=== PATIENT | male | born 1985 | race Two or more races ===

== ENCOUNTER 2020-10-16 09:26 | Inpatient (IN) | payer MEDICAID, OTHER ==
[~2020-10-16] VITALS: Ht 167.6 cm; Wt 89.7 kg
[2020-10-16 10:05] LABS: Red Blood Cells 4.21 10^6/uL (4.5-5.90)
[2020-10-16 10:07] LABS: Hematocrit 38.5 % (41.0-53.0); Hemoglobin 13.8 g/dL (13.5-17.5); Mean Corpuscular Hemoglobin 32.9 pg (28.0-32.0); Mean Corpuscular Hgb Conc. 35.9 g/dL (32.0-36.0); Mean Corpuscular Volume 91.5 fL (80.0-100.0); Red Cell Distribution Width 16.8 % (11.8-14.3)
[2020-10-16 10:15] LABS: White Blood Cell 36.3 10^3/uL (4.4-10.8)
[2020-10-16] MEDS ORDERED: THIAMINE 100mg/ml INJ (200mg/2ml VIAL) IV ONE (10:15)
[2020-10-16] MEDS ORDERED: SODIUM CHLORIDE 0.9% 1,000 ML IV ONE ×2 (10:15)
[2020-10-16 10:17] LABS: Basophils % (manual) 0 (0.0-2.0); Blast Cells 0; Eosinophils % (manual) 0 (0-7); Metamyelocytes % 0; Myelocytes % 0; Promyelocytes % 0; Reactive Lymphocytes 0
[2020-10-16 10:18] LABS: Albumin 1.8 g/dL (3.4-5.0); Calcium 7.3 mg/dL (8.5-10.1)
[2020-10-16 10:21] LABS: BUN/Creatinine Ratio 27.4; Bilirubin, Total 5.1 mg/dL (0.2-1.0); Total Protein 6.6 g/dL (6.4-8.2)
[2020-10-16 10:24] LABS: Potassium 2.9 mmol/L (3.5-5.1)
[2020-10-16] MEDS ORDERED: PANTOPRAZOLE 40 MG/10 ML VIAL INJ IV ONE (10:30)
[2020-10-16] MEDS ORDERED: cefTRIAXone 1GM/50ML D5W 50 ML IV ONE (10:30)
[2020-10-16] MEDS ORDERED: metroNIDAZOLE 500MG/100ML 100 ML IV ONE (10:30)
[2020-10-16] MEDS ORDERED: PROCHLORPERAZINE EDISYLATE 5 MG/ML 2ML VIAL IV ONE (11:00)
[2020-10-16 11:56] LABS: Lactic Acid w/Reflex 2.6 mmol/L (0.4-2.0)
[2020-10-16 12:01] LABS: Band Neutrophils % (manual) 19; Lymphocytes % (manual) 2 (10.0-50.0); Monocytes % (manual) 5 (0-12)
[2020-10-16] MEDS ORDERED: ALBUTEROL SULF 2.5 MG/0.5ML(0.5%) NEB SOLN NEB PRN (13:00)
[2020-10-16] MEDS ORDERED: SODIUM CHLORIDE 0.9% 1,000 ML IV SCH (13:00)
[2020-10-16] MEDS ORDERED: ONDANSETRON HCL 4 MG/2 ML VIAL IV PRN (13:00)
[2020-10-16] MEDS ORDERED: MORPHINE SULFATE INJECTION 2 MG/ML SYRG IV PRN (13:00)
[2020-10-16] MEDS ORDERED: POTASSIUM CHLORIDE 40 MEQ, LIDOCAINE 1% (LOCAL ANESTH.) 4 ML in SODIUM CHL 0.9% 250 ML IV ONE (13:00)
[2020-10-16] MEDS ORDERED: IPRATROPIUM BROM 0.5 MG/2.5ML INH SOL NEB PRN (13:00)
[2020-10-16] MEDS ORDERED: NITROGLYCERIN 0.4 MG SL TAB SL PRN (13:00)
[2020-10-16 13:32] VITALS: BP 119/70
[2020-10-16 13:39] LABS: Urine Bacteria NONE SEEN /hpf (None Seen); Urine Blood 1+ /uL (Negative); Urine Mucus FEW (None Seen); Urine Specific Gravity 1.031 (1.001-1.035); Urine WBC 3 /hpf (0 - 3)
[2020-10-16] MEDS ORDERED: REMDESIVIR PER PHARMACY 0 ML IV SCH (14:30)
[2020-10-16 14:31] LABS: INR 1.24 (0.9-1.15)
[2020-10-16] MEDS ORDERED: IOHEXOL 350 MG/ML 100ML IJ ONE (14:42)
[2020-10-16] MEDS ORDERED: OCTREOTIDE ACETATE 100 MCG in SODIUM CHL 0.9% 50 ML IV ONE (15:00)
[2020-10-16] MEDS: PIPERACILLIN-TAZOB 3.375GM 100 ML IV SCH ×2 (15:36→21:23)
[2020-10-16] MEDS: ACETAMINOPHEN 500 MG TAB PO PRN (15:49)
[2020-10-16 16:00] VITALS: BP_SYST 108; BP_SYST 118; BP_DIAS 62; BP_DIAS 67
[2020-10-16] MEDS: SODIUM CHLORIDE 0.9% 1,000 ML IV SCH (16:23)
[2020-10-16] MEDS: OCTREOTIDE ACETATE 500 MCG in SODIUM CHL 0.9% 99 ML IV SCH ×2 (17:22→23:17)
[2020-10-16] MEDS: SUCRALFATE 1 GM/10 ML ORAL SUSP PO SCH ×2 (17:22→21:23)
[2020-10-16] MEDS: DexAMETHasone SOD PHOS 10MG/1ML VIAL INJ IV SCH (17:23)
[2020-10-16] MEDS: ZINC SULFATE 220mg CAP or TAB PO SCH (17:24)
[2020-10-16] MEDS: ASCORBIC ACID 1,000 MG TAB PO SCH (17:24)
[2020-10-16] MEDS: CHOLECALCIFEROL (VITD3) 2,000 UNIT CAP/TAB PO SCH (17:25)
[2020-10-16] MEDS ORDERED: LIDOCAINE 1% (LOCAL ANESTH.) PF 5ml SDV ID ONE (18:00)
[2020-10-16] MEDS: BUDESONIDE (INHALATION) 180 MCG IH IN SCH (19:07)
[2020-10-16] MEDS: ALBUTEROL SULF HFA 90MCG INH 200DOSE IN PRN (19:07)
[2020-10-16 20:00] VITALS: BP 120/77
[2020-10-16 21:00] VITALS: BP 113/71
[2020-10-16] MEDS: PANTOPRAZOLE 40 MG/10 ML VIAL INJ IV SCH (21:22)
[2020-10-16] MEDS: SODIUM CHLOR 0.9% PF (SALINE LOCK) 10ML VIAL/SYR IV SCH (21:23)
[2020-10-16 22:00] VITALS: BP 106/64
[2020-10-16 23:00] VITALS: BP 115/66
[2020-10-17] VITALS (14 sets, daily range): BP systolic 98–124; BP diastolic 48–89
[2020-10-17] MEDS: MORPHINE SULFATE INJECTION 2 MG/ML SYRG IV PRN (02:00)
[2020-10-17] MEDS: PIPERACILLIN-TAZOB 3.375GM 100 ML IV SCH ×3 (05:01→22:04)
[2020-10-17] MEDS: SODIUM CHLORIDE 0.9% 1,000 ML IV SCH ×2 (05:02→17:10)
[2020-10-17] MEDS: SUCRALFATE 1 GM/10 ML ORAL SUSP PO SCH ×4 (06:21→22:05)
[2020-10-17 06:25] LABS: Hematocrit 36.2 % (41.0-53.0); Hemoglobin 12.9 g/dL (13.5-17.5); Mean Corpuscular Hemoglobin 32.6 pg (28.0-32.0); Mean Corpuscular Hgb Conc. 35.5 g/dL (32.0-36.0); Mean Corpuscular Volume 91.6 fL (80.0-100.0); Red Blood Cells 3.95 10^6/uL (4.5-5.90); Red Cell Distribution Width 17.1 % (11.8-14.3); White Blood Cell 27.1 10^3/uL (4.4-10.8)
[2020-10-17] MEDS: ALBUTEROL SULF HFA 90MCG INH 200DOSE IN PRN (06:35)
[2020-10-17] MEDS: BUDESONIDE (INHALATION) 180 MCG IH IN SCH ×2 (06:35→22:29)
[2020-10-17 06:41] LABS: Basophils % (manual) 0 (0.0-2.0); Eosinophils % (manual) 0 (0-7); Metamyelocytes % 0; Myelocytes % 0; Promyelocytes % 0
[2020-10-17 06:42] LABS: Blast Cells 0; Reactive Lymphocytes 0
[2020-10-17 06:46] LABS: Albumin 1.6 g/dL (3.4-5.0); Calcium 6.8 mg/dL (8.5-10.1); Potassium 3.5 mmol/L (3.5-5.1)
[2020-10-17 06:50] LABS: BUN/Creatinine Ratio 23.9; Bilirubin, Total 6.4 mg/dL (0.2-1.0)
[2020-10-17] MEDS ORDERED: IVERMECTIN 3 MG TAB PO ONE (07:00)
[2020-10-17 07:49] LABS: Band Neutrophils % (manual) 14; Lymphocytes % (manual) 2 (10.0-50.0); Monocytes % (manual) 1 (0-12)
[2020-10-17] MEDS: DexAMETHasone SOD PHOS 10MG/1ML VIAL INJ IV SCH (08:43)
[2020-10-17] MEDS: PANTOPRAZOLE 40 MG/10 ML VIAL INJ IV SCH ×2 (08:43→22:04)
[2020-10-17] MEDS: CHOLECALCIFEROL (VITD3) 2,000 UNIT CAP/TAB PO SCH (08:44)
[2020-10-17] MEDS: ZINC SULFATE 220mg CAP or TAB PO SCH (08:44)
[2020-10-17] MEDS: SODIUM CHLOR 0.9% PF (SALINE LOCK) 10ML VIAL/SYR IV SCH ×2 (08:44→22:04)
[2020-10-17] MEDS: ASCORBIC ACID 1,000 MG TAB PO SCH (08:44)
[2020-10-17] MEDS ORDERED: LIDOCAINE VISCOUS 2% 15ML UD ONE (08:45)
[2020-10-17] MEDS ORDERED: diphenhdrAMINE HCL 50 MG/1 ML VL ONE (08:46)
[2020-10-17] MEDS ORDERED: FAMOTIDINE 20 MG TAB PO SCH (10:00)
[2020-10-17] MEDS: OCTREOTIDE ACETATE 500 MCG in SODIUM CHL 0.9% 99 ML IV SCH ×2 (11:00→12:42)
[2020-10-17] MEDS: LORazepam 2MG/ML-1ML VIAL IV PRN ×2 (13:14→19:35)
[2020-10-17] MEDS: FOLIC ACID 1 MG, MULTIPLE VITAMIN 10 ML, MAGNESIUM SULF SDV 50% 8 MEQ, THIAMINE INJ 100... INJ SCH ×5 (15:26)
[2020-10-17] MEDS: fentaNYL CITRATE 100 MCG/2 ML VL ONE ×2 (16:22→16:25)
[2020-10-17] MEDS: MIDAZOLAM HCL 5 MG/ML-1ML VIAL ONE ×2 (16:22→16:25)
[2020-10-18 01:00] VITALS: BP 108/87
[2020-10-18] MEDS: ACETAMINOPHEN 500 MG TAB PO PRN ×2 (01:32→23:30)
[2020-10-18] MEDS: OCTREOTIDE ACETATE 500 MCG in SODIUM CHL 0.9% 99 ML IV SCH ×2 (01:41→15:50)
[2020-10-18] MEDS: LORazepam 2MG/ML-1ML VIAL IV PRN ×3 (01:47→23:00)
[2020-10-18 04:00] VITALS: BP 124/77
[2020-10-18] MEDS: PIPERACILLIN-TAZOB 3.375GM 100 ML IV SCH ×3 (06:00→22:03)
[2020-10-18 06:20] LABS: Basophils # (auto) 0 10 ^3/uL (0-0.2); Basophils % (auto) 0.1 % (0.0-2.0); Eosinophils # (auto) 0 10 ^3/uL (0-0.8); Hematocrit 36.2 % (41.0-53.0); Hemoglobin 12.8 g/dL (13.5-17.5); Lymphocytes # (auto) 0.4 10 ^3/uL (0.4-5.4); Lymphocytes % (auto) 1.8 % (10.0-50.0); Mean Corpuscular Hemoglobin 32.8 pg (28.0-32.0); Mean Corpuscular Hgb Conc. 35.3 g/dL (32.0-36.0); Monocytes % (auto) 4.7 % (0.0-12.0); Neutrophils # (auto) 19.3 10 ^3/uL (1.6-8.6); Neutrophils % (auto) 93.4 % (37.0-80.0); Red Blood Cells 3.89 10^6/uL (4.5-5.90); Red Cell Distribution Width 17.6 % (11.8-14.3); White Blood Cell 20.6 10^3/uL (4.4-10.8)
[2020-10-18] MEDS: ALBUTEROL SULF HFA 90MCG INH 200DOSE IN PRN ×2 (06:20→22:47)
[2020-10-18] MEDS: BUDESONIDE (INHALATION) 180 MCG IH IN SCH ×2 (06:21→22:47)
[2020-10-18] MEDS: SODIUM CHLORIDE 0.9% 1,000 ML IV SCH ×2 (06:30→19:50)
[2020-10-18 06:39] LABS: Potassium 3.7 mmol/L (3.5-5.1)
[2020-10-18 06:48] LABS: Albumin 1.5 g/dL (3.4-5.0); BUN/Creatinine Ratio 27.4; Calcium 6.9 mg/dL (8.5-10.1); Total Protein 5.6 g/dL (6.4-8.2)
[2020-10-18] MEDS: SUCRALFATE 1 GM/10 ML ORAL SUSP PO SCH ×4 (07:00→22:03)
[2020-10-18] MEDS: PANTOPRAZOLE 40 MG/10 ML VIAL INJ IV SCH ×2 (08:46→22:03)
[2020-10-18] MEDS: CHOLECALCIFEROL (VITD3) 2,000 UNIT CAP/TAB PO SCH (08:47)
[2020-10-18] MEDS: ZINC SULFATE 220mg CAP or TAB PO SCH (08:47)
[2020-10-18] MEDS: SODIUM CHLOR 0.9% PF (SALINE LOCK) 10ML VIAL/SYR IV SCH ×2 (08:47→22:03)
[2020-10-18] MEDS: chlordiazePOXIDE HCL 25 MG CAP PO PRN ×2 (11:26→21:16)
[2020-10-18 12:00] VITALS: BP 119/77
[2020-10-18] MEDS: HYDROcodone-ACET 5/325MG TAB PO PRN (12:31)
[2020-10-18] MEDS: MORPHINE SULFATE INJECTION 2 MG/ML SYRG IV PRN (13:27)
[2020-10-18] MEDS: FOLIC ACID 1 MG, MULTIPLE VITAMIN 10 ML, MAGNESIUM SULF SDV 50% 8 MEQ, THIAMINE INJ 100... INJ SCH ×5 (15:35)
[2020-10-18 16:34] VITALS: BP 116/80
[2020-10-18 19:00] VITALS: BP 107/68
[2020-10-19] VITALS (19 sets, daily range): BP systolic 92–129; BP diastolic 52–83
[2020-10-19] MEDS: OCTREOTIDE ACETATE 500 MCG in SODIUM CHL 0.9% 99 ML IV SCH ×3 (02:55→23:28)
[2020-10-19] MEDS: MORPHINE SULFATE INJECTION 2 MG/ML SYRG IV PRN ×2 (02:56→21:05)
[2020-10-19] MEDS: HYDROcodone-ACET 5/325MG TAB PO PRN ×3 (04:00→21:50)
[2020-10-19] MEDS: ACETAMINOPHEN 500 MG TAB PO PRN (05:02)
[2020-10-19] MEDS: PIPERACILLIN-TAZOB 3.375GM 100 ML IV SCH ×3 (06:00→23:28)
[2020-10-19 06:17] LABS: Hematocrit 38.8 % (41.0-53.0); Hemoglobin 13.4 g/dL (13.5-17.5); Mean Corpuscular Hemoglobin 32.2 pg (28.0-32.0); Mean Corpuscular Hgb Conc. 34.6 g/dL (32.0-36.0); Red Blood Cells 4.17 10^6/uL (4.5-5.90); Red Cell Distribution Width 17.2 % (11.8-14.3)
[2020-10-19] MEDS: BUDESONIDE (INHALATION) 180 MCG IH IN SCH ×2 (06:22→22:02)
[2020-10-19] MEDS: ALBUTEROL SULF HFA 90MCG INH 200DOSE IN PRN ×2 (06:24→22:02)
[2020-10-19 06:40] LABS: Potassium 3.5 mmol/L (3.5-5.1)
[2020-10-19 06:48] LABS: Basophils % (manual) 0 (0.0-2.0); Blast Cells 0; Metamyelocytes % 0; Myelocytes % 0; Promyelocytes % 0; Reactive Lymphocytes 0
[2020-10-19 06:51] LABS: BUN/Creatinine Ratio 17.6; Calcium 6.7 mg/dL (8.5-10.1)
[2020-10-19] MEDS: SUCRALFATE 1 GM/10 ML ORAL SUSP PO SCH ×4 (07:00→21:03)
[2020-10-19 08:06] LABS: Band Neutrophils % (manual) 15; Eosinophils % (manual) 1 (0-7); Lymphocytes % (manual) 6 (10.0-50.0); Monocytes % (manual) 3 (0-12)
[2020-10-19] MEDS ORDERED: LIDOCAINE VISCOUS 2% 15ML UD ONE (09:31)
[2020-10-19] MEDS: SODIUM CHLORIDE 0.9% 1,000 ML IV SCH ×3 (09:31→15:01)
[2020-10-19] MEDS: CHOLECALCIFEROL (VITD3) 2,000 UNIT CAP/TAB PO SCH (10:00)
[2020-10-19] MEDS: SODIUM CHLOR 0.9% PF (SALINE LOCK) 10ML VIAL/SYR IV SCH ×2 (10:00→21:02)
[2020-10-19] MEDS: PANTOPRAZOLE 40 MG/10 ML VIAL INJ IV SCH ×2 (10:00→21:02)
[2020-10-19] MEDS: ZINC SULFATE 220mg CAP or TAB PO SCH (10:00)
[2020-10-19] MEDS ORDERED: PHENYLEPHRINE HCL 10 MG/ML VL IV ONE (10:35)
[2020-10-19] MEDS ORDERED: MEPERIDINE HCL (25 MG/ML) 1ML VIAL ONE (10:47)
[2020-10-19] MEDS ORDERED: fentaNYL CITRATE 100 MCG/2 ML VL ONE (10:47)
[2020-10-19] MEDS ORDERED: MIDAZOLAM HCL 2MG/2ML 2ml VIAL (1mg/ml) ONE (10:47)
[2020-10-19] MEDS ORDERED: PROPOFOL 10 MG/ML 20 ML IV ONE (10:59)
[2020-10-19] MEDS ORDERED: DexAMETHasone SOD PHOS 10MG/1ML VIAL INJ ONE (10:59)
[2020-10-19 11:03] LABS: Hepatitis B Surface Antibody Negative
[2020-10-19] MEDS ORDERED: ONDANSETRON HCL 4 MG/2 ML VIAL IV PRN (11:15)
[2020-10-19] MEDS ORDERED: LABETALOL HCL 5 MG/ML 4ML SYRINGE IV PRN (11:15)
[2020-10-19] MEDS ORDERED: HYDROmorphone HCL 2 MG/ML VL IV PRN (11:15)
[2020-10-19] MEDS ORDERED: MIDAZOLAM HCL 2MG/2ML 2ml VIAL (1mg/ml) IV PRN (11:15)
[2020-10-19] MEDS ORDERED: ePHEDrine SULFATE 50 MG/ML AMP IV PRN (11:15)
[2020-10-19] MEDS ORDERED: MORPHINE SULFATE 4 MG/ML SYR/VIAL IV PRN (11:15)
[2020-10-19 11:40] LABS: Hepatitis A Total Antibody Positive
[2020-10-19] MEDS: FOLIC ACID 1 MG, MULTIPLE VITAMIN 10 ML, MAGNESIUM SULF SDV 50% 8 MEQ, THIAMINE INJ 100... INJ SCH ×5 (12:49)
[2020-10-19] MEDS ORDERED: DexAMETHasone SOD PHOS 10MG/1ML VIAL INJ IV ONE (14:00)
[2020-10-19] MEDS: LORazepam 2MG/ML-1ML VIAL IV PRN (14:56)
[2020-10-19] MEDS: chlordiazePOXIDE HCL 25 MG CAP PO PRN ×2 (14:58→21:50)
[2020-10-19 15:25] LABS: Hepatitis B Core Total AB Negative; Hepatitis B Surface Antigen Negative (Negative)
[2020-10-20] VITALS (17 sets, daily range): BP systolic 97–128; BP diastolic 60–88
[2020-10-20] MEDS: MORPHINE SULFATE INJECTION 2 MG/ML SYRG IV PRN (01:19)
[2020-10-20 05:38] LABS: Basophils # (auto) 0.1 10 ^3/uL (0-0.2); Basophils % (auto) 0.2 % (0.0-2.0); Eosinophils # (auto) 0 10 ^3/uL (0-0.8); Hemoglobin 12.9 g/dL (13.5-17.5); Lymphocytes # (auto) 0.5 10 ^3/uL (0.4-5.4); Lymphocytes % (auto) 2.1 % (10.0-50.0); Mean Corpuscular Hemoglobin 32.7 pg (28.0-32.0); Mean Corpuscular Volume 93.4 fL (80.0-100.0); Monocytes # (auto) 0.9 10 ^3/uL (0-1.3); Monocytes % (auto) 3.6 % (0.0-12.0); Neutrophils # (auto) 24.1 10 ^3/uL (1.6-8.6); Neutrophils % (auto) 94.1 % (37.0-80.0); Nucleated Red Blood Cells % 0.1 %; Red Blood Cells 3.96 10^6/uL (4.5-5.90); Red Cell Distribution Width 17.8 % (11.8-14.3); White Blood Cell 25.7 10^3/uL (4.4-10.8)
[2020-10-20 05:59] LABS: Potassium 4.3 mmol/L (3.5-5.1)
[2020-10-20 06:07] LABS: Albumin 1.5 g/dL (3.4-5.0); BUN/Creatinine Ratio 18.3; Bilirubin, Total 9.9 mg/dL (0.2-1.0); Total Protein 5.5 g/dL (6.4-8.2)
[2020-10-20] MEDS: ALBUTEROL SULF HFA 90MCG INH 200DOSE IN PRN ×2 (06:08→21:31)
[2020-10-20] MEDS: BUDESONIDE (INHALATION) 180 MCG IH IN SCH ×2 (06:08→21:31)
[2020-10-20] MEDS: SUCRALFATE 1 GM/10 ML ORAL SUSP PO SCH ×2 (06:48→09:17)
[2020-10-20] MEDS: PIPERACILLIN-TAZOB 3.375GM 100 ML IV SCH ×3 (06:48→21:28)
[2020-10-20] MEDS: ACETAMINOPHEN 500 MG TAB PO PRN (07:17)
[2020-10-20] MEDS: FOLIC ACID 1 MG in D5W 5% 50 ML INJ SCH (09:15)
[2020-10-20] MEDS: OCTREOTIDE ACETATE 500 MCG in SODIUM CHL 0.9% 99 ML IV SCH (09:15)
[2020-10-20] MEDS: DexAMETHasone SOD PHOS 10MG/1ML VIAL INJ IV SCH (09:16)
[2020-10-20] MEDS: PANTOPRAZOLE 40 MG/10 ML VIAL INJ IV SCH (09:16)
[2020-10-20] MEDS: THIAMINE 100mg/ml INJ (200mg/2ml VIAL) IV SCH (09:16)
[2020-10-20] MEDS: ZINC SULFATE 220mg CAP or TAB PO SCH (09:17)
[2020-10-20] MEDS: CHOLECALCIFEROL (VITD3) 2,000 UNIT CAP/TAB PO SCH (09:17)
[2020-10-20] MEDS: SODIUM CHLOR 0.9% PF (SALINE LOCK) 10ML VIAL/SYR IV SCH ×2 (09:17→21:28)
[2020-10-20] MEDS: chlordiazePOXIDE HCL 25 MG CAP PO PRN ×2 (09:23→21:28)
[2020-10-20] MEDS: LORazepam 2MG/ML-1ML VIAL IV PRN (16:45)
[2020-10-21] VITALS (7 sets, daily range): BP systolic 105–141; BP diastolic 57–83
[2020-10-21] MEDS: LORazepam 2MG/ML-1ML VIAL IV PRN (00:49)
[2020-10-21] MEDS: PIPERACILLIN-TAZOB 3.375GM 100 ML IV SCH ×3 (05:13→21:02)
[2020-10-21 06:16] LABS: Basophils # (auto) 0 10 ^3/uL (0-0.2); Basophils % (auto) 0.1 % (0.0-2.0); Eosinophils # (auto) 0 10 ^3/uL (0-0.8); Hematocrit 31.9 % (41.0-53.0); Hemoglobin 10.9 g/dL (13.5-17.5); Lymphocytes # (auto) 0.7 10 ^3/uL (0.4-5.4); Lymphocytes % (auto) 3.1 % (10.0-50.0); Mean Corpuscular Hemoglobin 32.6 pg (28.0-32.0); Mean Corpuscular Hgb Conc. 34.3 g/dL (32.0-36.0); Mean Corpuscular Volume 95.2 fL (80.0-100.0); Monocytes # (auto) 1.2 10 ^3/uL (0-1.3); Monocytes % (auto) 5.2 % (0.0-12.0); Neutrophils # (auto) 20.2 10 ^3/uL (1.6-8.6); Neutrophils % (auto) 91.6 % (37.0-80.0); Red Blood Cells 3.36 10^6/uL (4.5-5.90); Red Cell Distribution Width 18.1 % (11.8-14.3); White Blood Cell 22.1 10^3/uL (4.4-10.8)
[2020-10-21] MEDS: ALBUTEROL SULF HFA 90MCG INH 200DOSE IN PRN ×2 (08:21→23:52)
[2020-10-21] MEDS: BUDESONIDE (INHALATION) 180 MCG IH IN SCH ×2 (08:21→23:52)
[2020-10-21] MEDS: THIAMINE 100mg/ml INJ (200mg/2ml VIAL) IV SCH (09:46)
[2020-10-21] MEDS: SODIUM CHLOR 0.9% PF (SALINE LOCK) 10ML VIAL/SYR IV SCH ×2 (09:46→21:02)
[2020-10-21] MEDS: DexAMETHasone SOD PHOS 10MG/1ML VIAL INJ IV SCH (09:46)
[2020-10-21] MEDS: ZINC SULFATE 220mg CAP or TAB PO SCH (09:46)
[2020-10-21] MEDS: CHOLECALCIFEROL (VITD3) 2,000 UNIT CAP/TAB PO SCH (09:47)
[2020-10-21] MEDS: FOLIC ACID 1 MG in D5W 5% 50 ML INJ SCH (10:10)
[2020-10-21 10:16] LABS: Potassium 3.6 mmol/L (3.5-5.1)
[2020-10-21 10:24] LABS: Albumin 1.6 g/dL (3.4-5.0); BUN/Creatinine Ratio 16.9; Bilirubin, Total 8.3 mg/dL (0.2-1.0); Calcium 7.5 mg/dL (8.5-10.1); Total Protein 5.5 g/dL (6.4-8.2)
[2020-10-21] MEDS: HYDROcodone-ACET 5/325MG TAB PO PRN (12:15)
[2020-10-22] VITALS (8 sets, daily range): BP systolic 101–112; BP diastolic 53–76
[2020-10-22] MEDS: LORazepam 2MG/ML-1ML VIAL IV PRN (00:27)
[2020-10-22] MEDS: PIPERACILLIN-TAZOB 3.375GM 100 ML IV SCH ×4 (06:00→21:25)
[2020-10-22 06:26] LABS: Basophils # (auto) 0 10 ^3/uL (0-0.2); Basophils % (auto) 0.2 % (0.0-2.0); Eosinophils # (auto) 0 10 ^3/uL (0-0.8); Eosinophils % (auto) 0.2 % (0.0-7.0); Hemoglobin 10.8 g/dL (13.5-17.5); Lymphocytes # (auto) 0.8 10 ^3/uL (0.4-5.4); Lymphocytes % (auto) 3.8 % (10.0-50.0); Mean Corpuscular Hemoglobin 31.9 pg (28.0-32.0); Mean Corpuscular Hgb Conc. 33.8 g/dL (32.0-36.0); Mean Corpuscular Volume 94.5 fL (80.0-100.0); Monocytes # (auto) 1.3 10 ^3/uL (0-1.3); Monocytes % (auto) 6.1 % (0.0-12.0); Neutrophils # (auto) 19.6 10 ^3/uL (1.6-8.6); Neutrophils % (auto) 89.7 % (37.0-80.0); Red Blood Cells 3.39 10^6/uL (4.5-5.90); Red Cell Distribution Width 18.2 % (11.8-14.3); White Blood Cell 21.9 10^3/uL (4.4-10.8)
[2020-10-22 06:39] LABS: Potassium 3.5 mmol/L (3.5-5.1)
[2020-10-22 06:44] LABS: Albumin 1.3 g/dL (3.4-5.0); Magnesium 1.7 mg/dL (1.6-2.6)
[2020-10-22] MEDS: BUDESONIDE (INHALATION) 180 MCG IH IN SCH ×2 (07:10→19:38)
[2020-10-22] MEDS: ALBUTEROL SULF HFA 90MCG INH 200DOSE IN PRN ×2 (07:10→19:38)
[2020-10-22 07:12] LABS: Bilirubin, Total 6.7 mg/dL (0.2-1.0); Total Protein 5.2 g/dL (6.4-8.2)
[2020-10-22] MEDS: DexAMETHasone SOD PHOS 4 MG/1ML SDV INJ IV SCH (10:06)
[2020-10-22] MEDS: FOLIC ACID 1 MG in D5W 5% 50 ML INJ SCH (10:06)
[2020-10-22] MEDS: THIAMINE 100mg/ml INJ (200mg/2ml VIAL) IV SCH (10:06)
[2020-10-22] MEDS: SODIUM CHLOR 0.9% PF (SALINE LOCK) 10ML VIAL/SYR IV SCH ×2 (10:06→21:25)
[2020-10-22] MEDS: CHOLECALCIFEROL (VITD3) 2,000 UNIT CAP/TAB PO SCH (10:07)
[2020-10-22] MEDS: ZINC SULFATE 220mg CAP or TAB PO SCH (10:07)
[2020-10-22] MEDS ORDERED: MAGNESIUM SULFATE 1GM/100ML 100 ML IV ONE (12:30)
[2020-10-22] MEDS ORDERED: POTASSIUM CHL 20 Meq TABLET PO ONE (12:30)
[2020-10-23 05:00] VITALS: BP 94/42
[2020-10-23] MEDS: ACETAMINOPHEN 500 MG TAB PO PRN ×2 (05:07→23:08)
[2020-10-23] MEDS: PIPERACILLIN-TAZOB 3.375GM 100 ML IV SCH ×3 (05:49→21:41)
[2020-10-23 06:00] VITALS: BP 98/54
[2020-10-23 06:53] LABS: Hematocrit 33.9 % (41.0-53.0); Hemoglobin 11.6 g/dL (13.5-17.5); Mean Corpuscular Hemoglobin 32.4 pg (28.0-32.0); Mean Corpuscular Hgb Conc. 34.1 g/dL (32.0-36.0); Mean Corpuscular Volume 94.9 fL (80.0-100.0); Red Blood Cells 3.57 10^6/uL (4.5-5.90); Red Cell Distribution Width 18.2 % (11.8-14.3); White Blood Cell 26.6 10^3/uL (4.4-10.8)
[2020-10-23 07:01] LABS: Basophils % (manual) 0 (0.0-2.0); Blast Cells 0; Metamyelocytes % 0; Promyelocytes % 0; Reactive Lymphocytes 0
[2020-10-23 07:13] LABS: Potassium 3.8 mmol/L (3.5-5.1)
[2020-10-23 07:19] LABS: Albumin 1.6 g/dL (3.4-5.0); Bilirubin, Direct 7.8 mg/dL (0-0.2); Bilirubin, Total 9.2 mg/dL (0.2-1.0); Total Protein 5.4 g/dL (6.4-8.2)
[2020-10-23 07:50] LABS: Band Neutrophils % (manual) 7; Eosinophils % (manual) 1 (0-7); Lymphocytes % (manual) 4 (10.0-50.0); Monocytes % (manual) 6 (0-12); Myelocytes % 2
[2020-10-23] MEDS: ALBUTEROL SULF HFA 90MCG INH 200DOSE IN PRN ×2 (07:53→18:47)
[2020-10-23] MEDS: BUDESONIDE (INHALATION) 180 MCG IH IN SCH ×2 (07:53→18:47)
[2020-10-23 09:00] VITALS: BP 82/36
[2020-10-23] MEDS: DexAMETHasone SOD PHOS 4 MG/1ML SDV INJ IV SCH (09:41)
[2020-10-23] MEDS: CHOLECALCIFEROL (VITD3) 2,000 UNIT CAP/TAB PO SCH (09:41)
[2020-10-23] MEDS: ZINC SULFATE 220mg CAP or TAB PO SCH (09:42)
[2020-10-23] MEDS: chlordiazePOXIDE HCL 25 MG CAP PO PRN (09:42)
[2020-10-23] MEDS: SODIUM CHLOR 0.9% PF (SALINE LOCK) 10ML VIAL/SYR IV SCH ×2 (09:44→21:41)
[2020-10-23] MEDS: FOLIC ACID 1 MG in D5W 5% 50 ML INJ SCH (09:44)
[2020-10-23] MEDS ORDERED: SODIUM CHLORIDE 0.9% 500 ML IV ONE (09:45)
[2020-10-23] MEDS: SODIUM CHLORIDE 0.9% 1,000 ML IV SCH (10:49)
[2020-10-23] MEDS: THIAMINE 100mg/ml INJ (200mg/2ml VIAL) IV SCH (10:50)
[2020-10-23] MEDS ORDERED: VANCOMYCIN PER PHARMACY 0 MG IV SCH (11:15)
[2020-10-23] MEDS: HYDROcodone-ACET 5/325MG TAB PO PRN (11:24)
[2020-10-23 13:00] VITALS: BP 106/61
[2020-10-23] MEDS ORDERED: VANCOMYCIN 1GM/250ML 250 ML IV ONE (13:00)
[2020-10-23] MEDS ORDERED: PANTOPRAZOLE 40 MG TAB PO ONE (13:30)
[2020-10-23 13:51] LABS: Hepatitis C Antibody Negative (Negative)
[2020-10-23 17:16] VITALS: BP 93/59
[2020-10-23] MEDS: VANCOMYCIN 1GM/250ML 250 ML IV SCH (21:20)
[2020-10-23 22:00] VITALS: BP 116/71
[2020-10-24] MEDS: SODIUM CHLORIDE 0.9% 1,000 ML IV SCH
[2020-10-24 05:00] VITALS: BP 107/60
[2020-10-24] MEDS: VANCOMYCIN 1GM/250ML 250 ML IV SCH (06:20)
[2020-10-24] MEDS: PIPERACILLIN-TAZOB 3.375GM 100 ML IV SCH ×3 (06:30→22:38)
[2020-10-24 06:46] LABS: Hematocrit 32.1 % (41.0-53.0); Hemoglobin 11.1 g/dL (13.5-17.5); Mean Corpuscular Hemoglobin 33.6 pg (28.0-32.0); Mean Corpuscular Hgb Conc. 34.7 g/dL (32.0-36.0); Mean Corpuscular Volume 96.8 fL (80.0-100.0); Red Blood Cells 3.31 10^6/uL (4.5-5.90); Red Cell Distribution Width 18.4 % (11.8-14.3)
[2020-10-24 06:57] LABS: INR 1.6 (0.9-1.15)
[2020-10-24 07:00] LABS: White Blood Cell 34.9 10^3/uL (4.4-10.8)
[2020-10-24 07:01] LABS: Basophils % (manual) 0 (0.0-2.0); Blast Cells 0; Eosinophils % (manual) 0 (0-7); Myelocytes % 0; Promyelocytes % 0; Reactive Lymphocytes 0
[2020-10-24 07:04] LABS: Albumin 1.5 g/dL (3.4-5.0); Calcium 7.6 mg/dL (8.5-10.1); Magnesium 2.3 mg/dL (1.6-2.6); Potassium 4.4 mmol/L (3.5-5.1)
[2020-10-24 07:09] LABS: BUN/Creatinine Ratio 21.7; Bilirubin, Total 9.3 mg/dL (0.2-1.0); Total Protein 5.5 g/dL (6.4-8.2)
[2020-10-24] MEDS: ALBUTEROL SULF HFA 90MCG INH 200DOSE IN PRN ×2 (07:53→23:00)
[2020-10-24] MEDS: BUDESONIDE (INHALATION) 180 MCG IH IN SCH ×2 (07:54→23:00)
[2020-10-24 07:58] LABS: Band Neutrophils % (manual) 5; Lymphocytes % (manual) 5 (10.0-50.0); Metamyelocytes % 1; Monocytes % (manual) 4 (0-12)
[2020-10-24 09:00] VITALS: BP 100/58
[2020-10-24] MEDS: SODIUM CHLOR 0.9% PF (SALINE LOCK) 10ML VIAL/SYR IV SCH ×2 (09:41→22:38)
[2020-10-24] MEDS: ZINC SULFATE 220mg CAP or TAB PO SCH (09:41)
[2020-10-24] MEDS: HYDROcodone-ACET 5/325MG TAB PO PRN (09:42)
[2020-10-24] MEDS: PANTOPRAZOLE 40 MG TAB PO SCH (09:42)
[2020-10-24] MEDS: CHOLECALCIFEROL (VITD3) 2,000 UNIT CAP/TAB PO SCH (09:42)
[2020-10-24] MEDS ORDERED: DexAMETHasone SOD PHOS 4 MG/1ML SDV INJ IV SCH (10:00)
[2020-10-24] MEDS ORDERED: predniSONE 20 MG TAB PO ONE (11:15)
[2020-10-24 13:00] VITALS: BP 102/65
[2020-10-24] MEDS: ACETAMINOPHEN 500 MG TAB PO PRN (14:22)
[2020-10-24 17:27] VITALS: BP 103/55
[2020-10-24 21:35] VITALS: BP 103/56
[2020-10-25 05:34] VITALS: BP 107/60
[2020-10-25 05:51] VITALS: BP 107/60
[2020-10-25] MEDS: PIPERACILLIN-TAZOB 3.375GM 100 ML IV SCH ×3 (06:40→22:51)
[2020-10-25 06:56] LABS: Mean Corpuscular Hgb Conc. 34.6 g/dL (32.0-36.0)
[2020-10-25 06:58] LABS: Hematocrit 32.4 % (41.0-53.0); Hemoglobin 11.2 g/dL (13.5-17.5); Mean Corpuscular Hemoglobin 33.1 pg (28.0-32.0); Mean Corpuscular Volume 95.6 fL (80.0-100.0); Red Blood Cells 3.39 10^6/uL (4.5-5.90); Red Cell Distribution Width 18.3 % (11.8-14.3)
[2020-10-25] MEDS: ALBUTEROL SULF HFA 90MCG INH 200DOSE IN PRN (07:04)
[2020-10-25] MEDS: BUDESONIDE (INHALATION) 180 MCG IH IN SCH ×2 (07:04→22:52)
[2020-10-25 07:11] LABS: White Blood Cell 33.4 10^3/uL (4.4-10.8)
[2020-10-25 07:13] LABS: Basophils % (manual) 0 (0.0-2.0); Blast Cells 0; Eosinophils % (manual) 0 (0-7); Metamyelocytes % 0; Myelocytes % 0; Promyelocytes % 0; Reactive Lymphocytes 0
[2020-10-25 07:49] LABS: Albumin 1.6 g/dL (3.4-5.0); Potassium 4.6 mmol/L (3.5-5.1)
[2020-10-25 07:53] LABS: BUN/Creatinine Ratio 24.1; Bilirubin, Total 6.8 mg/dL (0.2-1.0); Total Protein 5.9 g/dL (6.4-8.2)
[2020-10-25] MEDS: FOLIC ACID 1 MG TAB PO SCH (08:41)
[2020-10-25] MEDS: PANTOPRAZOLE 40 MG TAB PO SCH (08:41)
[2020-10-25] MEDS: THIAMINE HCL 100 MG TAB PO SCH (08:42)
[2020-10-25] MEDS: CHOLECALCIFEROL (VITD3) 2,000 UNIT CAP/TAB PO SCH (08:43)
[2020-10-25] MEDS: ACETAMINOPHEN 500 MG TAB PO PRN (08:43)
[2020-10-25] MEDS: ZINC SULFATE 220mg CAP or TAB PO SCH (08:43)
[2020-10-25] MEDS: SODIUM CHLOR 0.9% PF (SALINE LOCK) 10ML VIAL/SYR IV SCH ×2 (08:44→22:51)
[2020-10-25 09:00] VITALS: BP 113/78
[2020-10-25 09:13] LABS: Band Neutrophils % (manual) 11; Lymphocytes % (manual) 1 (10.0-50.0); Monocytes % (manual) 2 (0-12)
[2020-10-25] MEDS ORDERED: predniSONE 20 MG TAB PO SCH (10:00)
[2020-10-25] MEDS: MORPHINE SULFATE INJECTION 2 MG/ML SYRG IV PRN (10:26)
[2020-10-25] MEDS ORDERED: MAGNESIUM OXIDE 400 MG TAB PO ONE (10:30)
[2020-10-25 13:00] VITALS: BP 115/62
[2020-10-25 17:00] VITALS: BP 120/64
[2020-10-25 21:47] VITALS: BP 119/62
[2020-10-25] MEDS: TEMAZEPAM 15 MG CAP PO PRN (22:50)
[2020-10-25] MEDS: MAGNESIUM OXIDE 400 MG TAB PO SCH (22:51)
[2020-10-26] VITALS (9 sets, daily range): BP systolic 72–116; BP diastolic 45–68
[2020-10-26] MEDS: ALBUTEROL SULF HFA 90MCG INH 200DOSE IN PRN ×3 (00:09→19:53)
[2020-10-26] MEDS: PIPERACILLIN-TAZOB 3.375GM 100 ML IV SCH ×3 (05:18→21:31)
[2020-10-26] MEDS: HYDROcodone-ACET 5/325MG TAB PO PRN ×2 (06:30→20:25)
[2020-10-26 07:05] LABS: Hematocrit 31.6 % (41.0-53.0); Hemoglobin 10.8 g/dL (13.5-17.5); Mean Corpuscular Hemoglobin 34.4 pg (28.0-32.0); Mean Corpuscular Hgb Conc. 34.3 g/dL (32.0-36.0); Mean Corpuscular Volume 100.4 fL (80.0-100.0); Red Blood Cells 3.15 10^6/uL (4.5-5.90); Red Cell Distribution Width 18.8 % (11.8-14.3)
[2020-10-26 07:12] LABS: Albumin 1.7 g/dL (3.4-5.0); Calcium 7.9 mg/dL (8.5-10.1); Potassium 4.2 mmol/L (3.5-5.1)
[2020-10-26 07:15] LABS: Total Protein 5.7 g/dL (6.4-8.2)
[2020-10-26 07:16] LABS: White Blood Cell 31.6 10^3/uL (4.4-10.8)
[2020-10-26 07:17] LABS: Basophils % (manual) 0 (0.0-2.0); Blast Cells 0; Eosinophils % (manual) 0 (0-7); Metamyelocytes % 0; Myelocytes % 0; Promyelocytes % 0; Reactive Lymphocytes 0
[2020-10-26] MEDS: BUDESONIDE (INHALATION) 180 MCG IH IN SCH ×2 (07:28→19:53)
[2020-10-26 08:12] LABS: Band Neutrophils % (manual) 22; Lymphocytes % (manual) 1 (10.0-50.0); Monocytes % (manual) 2 (0-12)
[2020-10-26] MEDS: ACETAMINOPHEN 500 MG TAB PO PRN (08:44)
[2020-10-26] MEDS: ALBUMIN 25% 100 ML IV SCH ×2 (09:01→09:49)
[2020-10-26] MEDS: MAGNESIUM OXIDE 400 MG TAB PO SCH ×2 (09:56→21:31)
[2020-10-26] MEDS: FOLIC ACID 1 MG TAB PO SCH (09:56)
[2020-10-26] MEDS: SODIUM CHLOR 0.9% PF (SALINE LOCK) 10ML VIAL/SYR IV SCH ×2 (09:56→21:30)
[2020-10-26] MEDS: PANTOPRAZOLE 40 MG TAB PO SCH (09:56)
[2020-10-26] MEDS: THIAMINE HCL 100 MG TAB PO SCH (09:56)
[2020-10-26] MEDS: ZINC SULFATE 220mg CAP or TAB PO SCH (09:56)
[2020-10-26] MEDS: CHOLECALCIFEROL (VITD3) 2,000 UNIT CAP/TAB PO SCH (09:57)
[2020-10-26] MEDS: SODIUM CHLORIDE 0.9% 1,000 ML IV SCH ×2 (10:15→21:30)
[2020-10-26 10:27] LABS: Lactic Acid w/Reflex 4.5 mmol/L (0.4-2.0)
[2020-10-26] MEDS: LINEZOLID 600MG/300ML 300 ML IV SCH ×2 (10:27→21:31)
[2020-10-26 13:05] LABS: Urine Bacteria FEW /hpf (None Seen); Urine Blood Negative /uL (Negative); Urine WBC 3 /hpf (0 - 3)
[2020-10-27 05:00] VITALS: BP 120/71
[2020-10-27] MEDS: PIPERACILLIN-TAZOB 3.375GM 100 ML IV SCH ×3 (05:16→21:46)
[2020-10-27] MEDS: SODIUM CHLORIDE 0.9% 1,000 ML IV SCH (05:49)
[2020-10-27 06:22] LABS: Hemoglobin 10.6 g/dL (13.5-17.5); Red Blood Cells 3.13 10^6/uL (4.5-5.90)
[2020-10-27 06:25] LABS: Hematocrit 30.8 % (41.0-53.0); Mean Corpuscular Hemoglobin 33.9 pg (28.0-32.0); Mean Corpuscular Hgb Conc. 34.4 g/dL (32.0-36.0); Mean Corpuscular Volume 98.4 fL (80.0-100.0); Red Cell Distribution Width 18.7 % (11.8-14.3)
[2020-10-27 06:30] LABS: White Blood Cell 33.9 10^3/uL (4.4-10.8)
[2020-10-27 06:33] LABS: Potassium 3.5 mmol/L (3.5-5.1)
[2020-10-27 06:40] LABS: Basophils % (manual) 0 (0.0-2.0); Blast Cells 0; Metamyelocytes % 0; Myelocytes % 0; Promyelocytes % 0; Reactive Lymphocytes 0
[2020-10-27 06:47] LABS: BUN/Creatinine Ratio 15.9; Bilirubin, Total 8.6 mg/dL (0.2-1.0); Total Protein 6.4 g/dL (6.4-8.2)
[2020-10-27] MEDS: BUDESONIDE (INHALATION) 180 MCG IH IN SCH (06:48)
[2020-10-27] MEDS: ALBUTEROL SULF HFA 90MCG INH 200DOSE IN PRN (06:48)
[2020-10-27 06:49] LABS: Band Neutrophils % (manual) 40; Eosinophils % (manual) 3 (0-7); Lymphocytes % (manual) 1 (10.0-50.0); Monocytes % (manual) 2 (0-12)
[2020-10-27] MEDS: SODIUM CHLOR 0.9% PF (SALINE LOCK) 10ML VIAL/SYR IV SCH ×2 (08:12→21:46)
[2020-10-27] MEDS: ZINC SULFATE 220mg CAP or TAB PO SCH (08:12)
[2020-10-27] MEDS: LINEZOLID 600MG/300ML 300 ML IV SCH ×2 (08:12→21:46)
[2020-10-27] MEDS: PANTOPRAZOLE 40 MG TAB PO SCH (08:12)
[2020-10-27] MEDS: FOLIC ACID 1 MG TAB PO SCH (08:12)
[2020-10-27] MEDS: MAGNESIUM OXIDE 400 MG TAB PO SCH ×2 (08:12→21:47)
[2020-10-27] MEDS: CHOLECALCIFEROL (VITD3) 2,000 UNIT CAP/TAB PO SCH (08:13)
[2020-10-27] MEDS: THIAMINE HCL 100 MG TAB PO SCH (08:13)
[2020-10-27 09:00] VITALS: BP 118/65
[2020-10-27] MEDS ORDERED: LACTULOSE 20Gm/30ML SOLN PO ONE (11:45)
[2020-10-27 13:00] VITALS: BP 110/63
[2020-10-27 17:00] VITALS: BP 116/64
[2020-10-27] MEDS: HYDROcodone-ACET 5/325MG TAB PO PRN (17:55)
[2020-10-27] MEDS: LACTULOSE 20Gm/30ML SOLN PO SCH (21:46)
[2020-10-27 22:00] VITALS: BP 111/53
[2020-10-28] MEDS: TEMAZEPAM 15 MG CAP PO PRN ×2 (00:02→23:45)
[2020-10-28 05:00] VITALS: BP 122/68
[2020-10-28] MEDS: PIPERACILLIN-TAZOB 3.375GM 100 ML IV SCH ×3 (05:20→22:23)
[2020-10-28 05:47] LABS: Eosinophils # (auto) 0.4 10 ^3/uL (0-0.8); Lymphocytes % (auto) 5.2 % (10.0-50.0); Red Blood Cells 2.81 10^6/uL (4.5-5.90)
[2020-10-28 05:54] LABS: Basophils # (auto) 0.1 10 ^3/uL (0-0.2); Basophils % (auto) 0.4 % (0.0-2.0); Eosinophils % (auto) 1.3 % (0.0-7.0); Hematocrit 27.6 % (41.0-53.0); Hemoglobin 9.7 g/dL (13.5-17.5); Lymphocytes # (auto) 1.5 10 ^3/uL (0.4-5.4); Mean Corpuscular Hemoglobin 34.6 pg (28.0-32.0); Mean Corpuscular Hgb Conc. 35.2 g/dL (32.0-36.0); Mean Corpuscular Volume 98.2 fL (80.0-100.0); Monocytes # (auto) 1.1 10 ^3/uL (0-1.3); Monocytes % (auto) 3.8 % (0.0-12.0); Neutrophils # (auto) 25.3 10 ^3/uL (1.6-8.6); Neutrophils % (auto) 89.3 % (37.0-80.0); Red Cell Distribution Width 18.8 % (11.8-14.3); White Blood Cell 28.3 10^3/uL (4.4-10.8)
[2020-10-28 06:05] LABS: Albumin 1.8 g/dL (3.4-5.0); Potassium 3.8 mmol/L (3.5-5.1)
[2020-10-28 06:08] LABS: BUN/Creatinine Ratio 17.6; Bilirubin, Total 7.8 mg/dL (0.2-1.0); Total Protein 5.8 g/dL (6.4-8.2)
[2020-10-28 07:37] VITALS: BP 122/68
[2020-10-28 09:00] VITALS: BP 118/67
[2020-10-28] MEDS: FOLIC ACID 1 MG TAB PO SCH (09:24)
[2020-10-28] MEDS: PANTOPRAZOLE 40 MG TAB PO SCH (09:24)
[2020-10-28] MEDS: LACTULOSE 20Gm/30ML SOLN PO SCH ×2 (09:24→22:23)
[2020-10-28] MEDS: HYDROcodone-ACET 5/325MG TAB PO PRN ×3 (09:24→18:05)
[2020-10-28] MEDS: MAGNESIUM OXIDE 400 MG TAB PO SCH ×2 (09:24→22:23)
[2020-10-28] MEDS: THIAMINE HCL 100 MG TAB PO SCH (09:25)
[2020-10-28] MEDS: CHOLECALCIFEROL (VITD3) 2,000 UNIT CAP/TAB PO SCH (09:25)
[2020-10-28] MEDS: SODIUM CHLOR 0.9% PF (SALINE LOCK) 10ML VIAL/SYR IV SCH ×2 (09:25→22:22)
[2020-10-28] MEDS: ZINC SULFATE 220mg CAP or TAB PO SCH (09:25)
[2020-10-28] MEDS: LINEZOLID 600MG/300ML 300 ML IV SCH ×2 (11:22→22:23)
[2020-10-28] MEDS: chlordiazePOXIDE HCL 25 MG CAP PO PRN (11:27)
[2020-10-28 13:00] VITALS: BP 124/62
[2020-10-28 17:00] VITALS: BP 109/64
[2020-10-28 22:00] VITALS: BP 116/66
[2020-10-29] MEDS: HYDROcodone-ACET 5/325MG TAB PO PRN ×3 (04:11→18:26)
[2020-10-29 05:00] VITALS: BP 115/52
[2020-10-29 06:03] LABS: Basophils # (auto) 0.3 10 ^3/uL (0-0.2); Basophils % (auto) 1.1 % (0.0-2.0); Eosinophils # (auto) 0.4 10 ^3/uL (0-0.8)
[2020-10-29 06:07] LABS: Eosinophils % (auto) 1.9 % (0.0-7.0); Hematocrit 28.1 % (41.0-53.0); Lymphocytes # (auto) 1.7 10 ^3/uL (0.4-5.4); Lymphocytes % (auto) 7.1 % (10.0-50.0); Mean Corpuscular Hgb Conc. 35.7 g/dL (32.0-36.0); Mean Corpuscular Volume 97.9 fL (80.0-100.0); Monocytes # (auto) 1.1 10 ^3/uL (0-1.3); Monocytes % (auto) 4.6 % (0.0-12.0); Neutrophils # (auto) 19.9 10 ^3/uL (1.6-8.6); Neutrophils % (auto) 85.3 % (37.0-80.0); Red Blood Cells 2.87 10^6/uL (4.5-5.90); Red Cell Distribution Width 18.8 % (11.8-14.3); White Blood Cell 23.3 10^3/uL (4.4-10.8)
[2020-10-29] MEDS: PIPERACILLIN-TAZOB 3.375GM 100 ML IV SCH ×3 (06:07→21:30)
[2020-10-29 06:20] LABS: INR 1.39 (0.9-1.15)
[2020-10-29 06:24] LABS: Albumin 1.8 g/dL (3.4-5.0); Calcium 7.7 mg/dL (8.5-10.1); Magnesium 1.9 mg/dL (1.6-2.6); Potassium 3.5 mmol/L (3.5-5.1)
[2020-10-29 06:30] LABS: Bilirubin, Total 8.1 mg/dL (0.2-1.0); Phosphorus 2.4 mg/dL (2.5-4.90)
[2020-10-29 08:30] VITALS: BP 106/65
[2020-10-29] MEDS: CHOLECALCIFEROL (VITD3) 2,000 UNIT CAP/TAB PO SCH (10:33)
[2020-10-29] MEDS: MAGNESIUM OXIDE 400 MG TAB PO SCH ×2 (10:34→21:30)
[2020-10-29] MEDS: FOLIC ACID 1 MG TAB PO SCH (10:34)
[2020-10-29] MEDS: ZINC SULFATE 220mg CAP or TAB PO SCH (10:34)
[2020-10-29] MEDS: SODIUM CHLOR 0.9% PF (SALINE LOCK) 10ML VIAL/SYR IV SCH ×2 (10:35→21:29)
[2020-10-29] MEDS: LINEZOLID 600MG/300ML 300 ML IV SCH ×2 (10:35→21:30)
[2020-10-29] MEDS: LACTULOSE 20Gm/30ML SOLN PO SCH ×2 (10:36→21:30)
[2020-10-29] MEDS: THIAMINE HCL 100 MG TAB PO SCH (10:37)
[2020-10-29] MEDS: PANTOPRAZOLE 40 MG TAB PO SCH (10:52)
[2020-10-29 12:29] VITALS: BP 119/63
[2020-10-29 16:40] VITALS: BP 112/62
[2020-10-29 22:00] VITALS: BP 117/60
[2020-10-29] MEDS: TEMAZEPAM 15 MG CAP PO PRN (23:52)
[2020-10-30 05:00] VITALS: BP 108/66
[2020-10-30] MEDS: PIPERACILLIN-TAZOB 3.375GM 100 ML IV SCH ×3 (06:22→22:05)
[2020-10-30 08:46] VITALS: BP 114/63
[2020-10-30] MEDS: CHOLECALCIFEROL (VITD3) 2,000 UNIT CAP/TAB PO SCH (10:00)
[2020-10-30] MEDS: SODIUM CHLOR 0.9% PF (SALINE LOCK) 10ML VIAL/SYR IV SCH (10:00)
[2020-10-30] MEDS: HYDROcodone-ACET 5/325MG TAB PO PRN ×2 (10:31→18:48)
[2020-10-30] MEDS: PANTOPRAZOLE 40 MG TAB PO SCH (10:31)
[2020-10-30] MEDS: MAGNESIUM OXIDE 400 MG TAB PO SCH ×2 (10:31→22:06)
[2020-10-30] MEDS: ZINC SULFATE 220mg CAP or TAB PO SCH (10:31)
[2020-10-30] MEDS: FOLIC ACID 1 MG TAB PO SCH (10:31)
[2020-10-30] MEDS: LINEZOLID 600MG/300ML 300 ML IV SCH ×2 (10:32→23:14)
[2020-10-30] MEDS: THIAMINE HCL 100 MG TAB PO SCH (10:32)
[2020-10-30] MEDS: LACTULOSE 20Gm/30ML SOLN PO SCH ×2 (10:32→22:06)
[2020-10-30] MEDS ORDERED: MULTIPLE VITAMINS W/ MINERALS TAB PO ONE (11:30)
[2020-10-30] MEDS: CYCLOBENZAPRINE HCL 10 MG TAB PO PRN (12:56)
[2020-10-30 12:59] VITALS: BP 116/64
[2020-10-30 17:00] VITALS: BP 107/57
[2020-10-30] MEDS: ALBUTEROL SULF HFA 90MCG INH 200DOSE IN PRN (19:11)
[2020-10-30 22:00] VITALS: BP 118/66
[2020-10-30] MEDS: TEMAZEPAM 15 MG CAP PO PRN (22:51)
[2020-10-30] MEDS: ACETAMINOPHEN 500 MG TAB PO PRN (22:51)
[2020-10-31] MEDS: SODIUM CHLOR 0.9% PF (SALINE LOCK) 10ML VIAL/SYR IV SCH ×3 (00:46→22:37)
[2020-10-31 05:00] VITALS: BP 102/63
[2020-10-31] MEDS: PIPERACILLIN-TAZOB 3.375GM 100 ML IV SCH (05:11)
[2020-10-31 06:14] LABS: Basophils # (auto) 0.3 10 ^3/uL (0-0.2); Basophils % (auto) 1.3 % (0.0-2.0); Eosinophils # (auto) 0.6 10 ^3/uL (0-0.8); Eosinophils % (auto) 2.8 % (0.0-7.0); Hematocrit 30.5 % (41.0-53.0); Hemoglobin 10.3 g/dL (13.5-17.5); Lymphocytes # (auto) 1.8 10 ^3/uL (0.4-5.4); Lymphocytes % (auto) 7.7 % (10.0-50.0); Mean Corpuscular Hemoglobin 33.2 pg (28.0-32.0); Mean Corpuscular Hgb Conc. 33.8 g/dL (32.0-36.0); Mean Corpuscular Volume 98.1 fL (80.0-100.0); Monocytes # (auto) 1.2 10 ^3/uL (0-1.3); Monocytes % (auto) 5.3 % (0.0-12.0); Neutrophils % (auto) 82.9 % (37.0-80.0); Red Cell Distribution Width 18.9 % (11.8-14.3)
[2020-10-31 06:34] LABS: Potassium 3.9 mmol/L (3.5-5.1)
[2020-10-31 06:41] LABS: Albumin 1.6 g/dL (3.4-5.0); Bilirubin, Total 7.6 mg/dL (0.2-1.0); Calcium 7.7 mg/dL (8.5-10.1); Magnesium 2.1 mg/dL (1.6-2.6); Total Protein 6.2 g/dL (6.4-8.2)
[2020-10-31 08:27] VITALS: BP 111/59
[2020-10-31 09:00] VITALS: BP 111/59
[2020-10-31] MEDS: CHOLECALCIFEROL (VITD3) 2,000 UNIT CAP/TAB PO SCH (09:37)
[2020-10-31] MEDS: LINEZOLID 600MG/300ML 300 ML IV SCH (09:37)
[2020-10-31] MEDS: MULTIPLE VITAMINS W/ MINERALS TAB PO SCH (09:37)
[2020-10-31] MEDS: PANTOPRAZOLE 40 MG TAB PO SCH (09:37)
[2020-10-31] MEDS: LACTULOSE 20Gm/30ML SOLN PO SCH ×2 (09:37→20:28)
[2020-10-31] MEDS: FOLIC ACID 1 MG TAB PO SCH (09:38)
[2020-10-31] MEDS: HYDROcodone-ACET 5/325MG TAB PO PRN ×2 (09:38→21:47)
[2020-10-31] MEDS: THIAMINE HCL 100 MG TAB PO SCH (09:38)
[2020-10-31] MEDS: MAGNESIUM OXIDE 400 MG TAB PO SCH ×2 (09:38→20:29)
[2020-10-31] MEDS: ZINC SULFATE 220mg CAP or TAB PO SCH (09:38)
[2020-10-31] MEDS: CYCLOBENZAPRINE HCL 10 MG TAB PO PRN (11:09)
[2020-10-31] MEDS ORDERED: GABAPENTIN 100 MG CAP PO ONE (11:45)
[2020-10-31 12:27] VITALS: BP 116/62
[2020-10-31] MEDS: GABAPENTIN 100 MG CAP PO SCH ×2 (15:13→20:29)
[2020-10-31] MEDS: levoFLOXacin 500 MG TAB PO SCH (15:14)
[2020-10-31 17:00] VITALS: BP 111/64
[2020-10-31] MEDS: TEMAZEPAM 15 MG CAP PO PRN (21:47)
[2020-10-31 22:00] VITALS: BP 126/65
[2020-10-31] MEDS: ALBUTEROL SULF HFA 90MCG INH 200DOSE IN PRN (22:07)
[2020-11-01 05:00] VITALS: BP 101/55
[2020-11-01] MEDS: GABAPENTIN 100 MG CAP PO SCH ×2 (05:59→15:10)
[2020-11-01] MEDS: SODIUM CHLOR 0.9% PF (SALINE LOCK) 10ML VIAL/SYR IV SCH (09:22)
[2020-11-01] MEDS: FOLIC ACID 1 MG TAB PO SCH (09:22)
[2020-11-01] MEDS: LACTULOSE 20Gm/30ML SOLN PO SCH (09:22)
[2020-11-01] MEDS: THIAMINE HCL 100 MG TAB PO SCH (09:22)
[2020-11-01] MEDS: MULTIPLE VITAMINS W/ MINERALS TAB PO SCH (09:23)
[2020-11-01] MEDS: levoFLOXacin 500 MG TAB PO SCH (09:23)
[2020-11-01] MEDS: CHOLECALCIFEROL (VITD3) 2,000 UNIT CAP/TAB PO SCH (09:23)
[2020-11-01] MEDS: PANTOPRAZOLE 40 MG TAB PO SCH (09:23)
[2020-11-01] MEDS: ZINC SULFATE 220mg CAP or TAB PO SCH (09:23)
[2020-11-01] MEDS: HYDROcodone-ACET 5/325MG TAB PO PRN (09:23)
[2020-11-01] MEDS: MAGNESIUM OXIDE 400 MG TAB PO SCH (09:23)
[2020-11-01 10:00] VITALS: BP 108/62
[2020-11-01 12:27] VITALS: BP 114/58
[2020-11-01 17:00] VITALS: BP 105/61
== END 2020-11-01 18:04 | disposition home or self-care (01) | DRG 720 ==
LOC: EDBD → ER 09:26 → TELE 12:50 → DOU IN ICU 15:37 → EAST 10-20 15:28
PROVIDERS: ADMIT Nurse Practitioner Acute Care; ATTEND Internal Medicine
PROC: 02HV33Z Insertion of Infusion Device into Superior Vena Cava, Percutaneous Approach (ICD-10-PCS; 2020-10-16)
PROC: 0DJ08ZZ Inspection of Upper Intestinal Tract, Via Natural or Artificial Opening Endoscopic (ICD-10-PCS; 2020-10-17)
PROC: 06L38CZ Occlusion of Esophageal Vein with Extraluminal Device, Via Natural or Artificial Opening Endoscopic (ICD-10-PCS; principal; 2020-10-19 10:45)
DX: A41.89 Other specified sepsis (principal); U07.1 COVID-19; J96.01 Acute respiratory failure with hypoxia; J69.0 Pneumonitis due to inhalation of food and vomit; K76.6 Portal hypertension; I85.11 Secondary esophageal varices with bleeding; E44.0 Moderate protein-calorie malnutrition; E87.1 Hypo-osmolality and hyponatremia; F10.239 Alcohol dependence with withdrawal, unspecified; F10.20 Alcohol dependence, uncomplicated; E87.6 Hypokalemia; K52.9 Noninfective gastroenteritis and colitis, unspecified; G62.1 Alcoholic polyneuropathy; K31.89 Other diseases of stomach and duodenum; K70.10 Alcoholic hepatitis without ascites; K70.30 Alcoholic cirrhosis of liver without ascites; Z59.0 Homelessness; Z79.899 Other long term (current) drug therapy; Z68.28 Body mass index [BMI] 28.0-28.9, adult
CPT/HCPCS: 36415; 36569; 43235; 71045; 71275; 74176; 80048; 80053; 80076; 80202; 81001; 82140; 82270; 82306; 82550; 82565; 82607; 82962; 83036; 83605; 83690; 83735; 84100; 84132; 85007; 85025; 85027; 85049; 85610; 85730; 86677; 86704; 86706; 86708; 86803; 87040; 87045; 87081; 87340; 87426; 87427; 94640; 96361; 96365; 96368; 96375; C9113; G0378; J0696; J1100; J2001; J2250; J2405; J2543; J2704; J3490; J7060; P9047

== ENCOUNTER 2020-11-08 09:06 | Inpatient (IN) | payer MEDICAID, OTHER ==
[~2020-11-08] VITALS: Ht 172.7 cm; Wt 90.7 kg
[2020-11-08 10:08] LABS: Hematocrit 25.8 % (41.0-53.0); Hemoglobin 8.8 g/dL (13.5-17.5); Mean Corpuscular Hgb Conc. 34.1 g/dL (32.0-36.0)
[2020-11-08 10:09] LABS: Mean Corpuscular Hemoglobin 34.4 pg (28.0-32.0); Mean Corpuscular Volume 100.9 fL (80.0-100.0); Red Blood Cells 2.56 10^6/uL (4.5-5.90)
[2020-11-08 10:14] LABS: White Blood Cell 30.5 10^3/uL (4.4-10.8)
[2020-11-08 10:15] LABS: Basophils % (manual) 0 (0.0-2.0); Blast Cells 0; Metamyelocytes % 0; Myelocytes % 0; Promyelocytes % 0; Reactive Lymphocytes 0
[2020-11-08 10:20] LABS: Albumin 1.7 g/dL (3.4-5.0); Calcium 7.8 mg/dL (8.5-10.1); Potassium 3.1 mmol/L (3.5-5.1)
[2020-11-08 10:23] LABS: Bilirubin, Total 5.4 mg/dL (0.2-1.0); Total Protein 6.5 g/dL (6.4-8.2)
[2020-11-08] MEDS ORDERED: FUROSEMIDE 40 MG/4 ML VIAL IV ONE (10:30)
[2020-11-08] MEDS ORDERED: ALBUMIN 25% 100 ML IV ONE (10:30)
[2020-11-08] MEDS ORDERED: metroNIDAZOLE 500MG/100ML 100 ML IV ONE (10:30)
[2020-11-08] MEDS ORDERED: cefTRIAXone 1GM/50ML D5W 50 ML IV ONE (10:30)
[2020-11-08] MEDS ORDERED: SPIRONOLACTONE 25 MG TAB PO ONE (10:30)
[2020-11-08 10:32] LABS: Band Neutrophils % (manual) 7; Eosinophils % (manual) 7 (0-7); Lymphocytes % (manual) 3 (10.0-50.0); Monocytes % (manual) 6 (0-12)
[2020-11-08 11:52] LABS: Lactic Acid w/Reflex 2.1 mmol/L (0.4-2.0)
[2020-11-08] MEDS ORDERED: POTASSIUM EFFERVESENT TAB 25 MEQ PO ONE (12:30)
[2020-11-08 12:36] LABS: Urine Bacteria FEW /hpf (None Seen); Urine Blood Negative /uL (Negative); Urine Specific Gravity 1.004 (1.001-1.035); Urine WBC 1 /hpf (0 - 3)
[2020-11-08] MEDS ORDERED: NITROGLYCERIN 0.4 MG SL TAB SL PRN (14:00)
[2020-11-08] MEDS ORDERED: MORPHINE SULFATE INJECTION 2 MG/ML SYRG IV PRN (14:00)
[2020-11-08] MEDS: PIPERACILLIN-TAZOB 3.375GM 100 ML IV SCH ×2 (14:21→21:38)
[2020-11-08] MEDS: GABAPENTIN 100 MG CAP PO SCH ×2 (14:22→21:38)
[2020-11-08] MEDS: MORPHINE SULFATE INJECTION 2 MG/ML SYRG IV PRN (15:19)
[2020-11-08] MEDS: ONDANSETRON HCL 4 MG/2 ML VIAL IV PRN (15:19)
[2020-11-08] MEDS: LACTULOSE 20Gm/30ML SOLN PO SCH (21:37)
[2020-11-08] MEDS: PROPRANOLOL HCL 20 MG TAB PO SCH (21:38)
[2020-11-09 00:48] VITALS: BP 122/58
[2020-11-09] MEDS ORDERED: CHOL20007 PO ×2 (01:11)
[2020-11-09] MEDS ORDERED: ACET-1156 PO ×2 (01:11)
[2020-11-09] MEDS ORDERED: MULTCAP45 PO (01:11)
[2020-11-09] MEDS ORDERED: ALBUAER3 IN ×2 (01:11)
[2020-11-09] MEDS ORDERED: LEVO-28 PO ×2 (01:11)
[2020-11-09] MEDS ORDERED: GABA100C9 PO ×2 (01:11)
[2020-11-09] MEDS ORDERED: OMEP20TA PO (01:11)
[2020-11-09] MEDS: MORPHINE SULFATE INJECTION 2 MG/ML SYRG IV PRN ×3 (01:24→21:55)
[2020-11-09] MEDS: ONDANSETRON HCL 4 MG/2 ML VIAL IV PRN (01:25)
[2020-11-09 05:50] VITALS: BP 109/60
[2020-11-09] MEDS: PIPERACILLIN-TAZOB 3.375GM 100 ML IV SCH ×3 (06:36→21:17)
[2020-11-09] MEDS: GABAPENTIN 100 MG CAP PO SCH ×3 (06:39→21:18)
[2020-11-09 09:00] VITALS: BP 115/52
[2020-11-09] MEDS ORDERED: FUROSEMIDE 20 MG/2 ML VIAL IV SCH (10:00)
[2020-11-09] MEDS: LACTULOSE 20Gm/30ML SOLN PO SCH ×2 (10:20→21:17)
[2020-11-09] MEDS: PROPRANOLOL HCL 20 MG TAB PO SCH ×2 (10:20→21:18)
[2020-11-09] MEDS ORDERED: GAB100C PO (10:32)
[2020-11-09] MEDS ORDERED: LACT10SO59 PO ×2 (10:32)
[2020-11-09] MEDS ORDERED: CHOL200035 PO (10:32)
[2020-11-09] MEDS ORDERED: MULT-1056 PO ×2 (10:32)
[2020-11-09] MEDS ORDERED: OMEP-260 PO ×2 (10:32)
[2020-11-09] MEDS ORDERED: SPIRONOLACTONE 25 MG TAB PO ONE (11:15)
[2020-11-09] MEDS ORDERED: traMADol HCL 50 MG TAB PO PRN (11:15)
[2020-11-09] MEDS ORDERED: FUROSEMIDE 20 MG TAB PO ONE (11:15)
[2020-11-09 12:27] LABS: BUN/Creatinine Ratio 12.5; Calcium 7.7 mg/dL (8.5-10.1); Potassium 3.6 mmol/L (3.5-5.1)
[2020-11-09 13:00] VITALS: BP 105/57
[2020-11-09 16:49] VITALS: BP 108/60
[2020-11-09] MEDS: SPIRONOLACTONE 25 MG TAB PO SCH (17:38)
[2020-11-09 22:00] VITALS: BP 118/62
[2020-11-10] MEDS ORDERED: TEMAZEPAM 15 MG CAP PO PRN (00:30)
[2020-11-10] MEDS ORDERED: TEMAZEPAM 15 MG CAP PO ONE (00:45)
[2020-11-10 05:00] VITALS: BP 107/55
[2020-11-10] MEDS: SPIRONOLACTONE 25 MG TAB PO SCH (05:56)
[2020-11-10] MEDS: GABAPENTIN 100 MG CAP PO SCH ×2 (05:56→15:24)
[2020-11-10] MEDS: PIPERACILLIN-TAZOB 3.375GM 100 ML IV SCH ×2 (06:02→15:25)
[2020-11-10] MEDS: MORPHINE SULFATE INJECTION 2 MG/ML SYRG IV PRN (06:15)
[2020-11-10 06:30] LABS: Nucleated Red Blood Cells % 0.1 %; White Blood Cell 28.2 10^3/uL (4.4-10.8)
[2020-11-10 06:32] LABS: Basophils # (auto) 0.2 10 ^3/uL (0-0.2); Basophils % (auto) 0.8 % (0.0-2.0); Eosinophils # (auto) 1.3 10 ^3/uL (0-0.8); Eosinophils % (auto) 4.6 % (0.0-7.0); Hematocrit 26.8 % (41.0-53.0); Lymphocytes % (auto) 6.9 % (10.0-50.0); Mean Corpuscular Hemoglobin 34.3 pg (28.0-32.0); Mean Corpuscular Hgb Conc. 33.5 g/dL (32.0-36.0); Mean Corpuscular Volume 102.3 fL (80.0-100.0); Monocytes # (auto) 1.4 10 ^3/uL (0-1.3); Monocytes % (auto) 4.9 % (0.0-12.0); Neutrophils # (auto) 23.3 10 ^3/uL (1.6-8.6); Neutrophils % (auto) 82.8 % (37.0-80.0); Red Blood Cells 2.62 10^6/uL (4.5-5.90)
[2020-11-10 07:02] LABS: Albumin 1.9 g/dL (3.4-5.0); Calcium 7.8 mg/dL (8.5-10.1); Potassium 3.7 mmol/L (3.5-5.1)
[2020-11-10 07:04] LABS: BUN/Creatinine Ratio 10.2
[2020-11-10 07:07] LABS: Bilirubin, Total 4.7 mg/dL (0.2-1.0); Total Protein 6.3 g/dL (6.4-8.2)
[2020-11-10 08:42] VITALS: BP 111/56
[2020-11-10] MEDS ORDERED: FUROSEMIDE 20 MG TAB PO SCH (10:00)
[2020-11-10] MEDS: PROPRANOLOL HCL 20 MG TAB PO SCH (10:31)
[2020-11-10] MEDS: LACTULOSE 20Gm/30ML SOLN PO SCH (10:32)
[2020-11-10] MEDS ORDERED: Ensure HIGH Protein Chocolate 8oz Bottle PO SCH (12:00)
[2020-11-10 12:51] VITALS: BP 130/54
[2020-11-10 12:53] VITALS: BP 130/54
[2020-11-10 16:43] VITALS: BP 110/57
== END 2020-11-10 17:55 | disposition home or self-care (01) | DRG 720 ==
LOC: ER 09:06 → EDBD 13:48 → TELE 13:48 → TELE-EAST 23:44
PROVIDERS: ADMIT Nurse Practitioner Acute Care; ATTEND Internal Medicine
DX: A41.9 Sepsis, unspecified organism (principal); E43 Unspecified severe protein-calorie malnutrition; K76.6 Portal hypertension; K74.60 Unspecified cirrhosis of liver; I85.10 Secondary esophageal varices without bleeding; E87.6 Hypokalemia; D63.8 Anemia in other chronic diseases classified elsewhere; N39.0 Urinary tract infection, site not specified; Z20.822 Contact with and (suspected) exposure to COVID-19; F10.20 Alcohol dependence, uncomplicated; Z68.30 Body mass index [BMI] 30.0-30.9, adult; Z59.0 Homelessness; Z79.899 Other long term (current) drug therapy
CPT/HCPCS: 36415; 71045; 74176; 80048; 80053; 81001; 82140; 83605; 83735; 85007; 85025; 85027; 85379; 86141; 87040; 87081; 87426; 93005; 93306; 96365; 96367; 96375; G0378; J0696; J2405; J2543; J3490; P9047

== ENCOUNTER 2020-12-16 07:38 | Emergency (ER) | payer MEDICAID ==
[~2020-12-16] VITALS: Ht 165.1 cm; Wt 61.2 kg
[~2020-12-16 07:38] MED LIST: ACET-1156 PO; ALBUAER3 IN; CHOL20007 PO; GABA100C9 PO; LACT10SO59 PO; MULT-1056 PO; OMEP-260 PO
[2020-12-16] MEDS ORDERED: FUROSEMIDE 40 MG/4 ML VIAL IV ONE (08:30)
[2020-12-16] MEDS ORDERED: THIAMINE 100mg/ml INJ (200mg/2ml VIAL) IV ONE (08:30)
[2020-12-16 09:11] LABS: Basophils # (auto) 0 10 ^3/uL (0-0.2); Basophils % (auto) 0.6 % (0.0-2.0); Eosinophils # (auto) 0.4 10 ^3/uL (0-0.8); Eosinophils % (auto) 6.8 % (0.0-7.0); Hemoglobin 11.5 g/dL (13.5-17.5); Lymphocytes # (auto) 1.4 10 ^3/uL (0.4-5.4); Lymphocytes % (auto) 22.8 % (10.0-50.0); Mean Corpuscular Hemoglobin 33.4 pg (28.0-32.0); Mean Corpuscular Hgb Conc. 33.9 g/dL (32.0-36.0); Mean Corpuscular Volume 98.3 fL (80.0-100.0); Monocytes # (auto) 0.5 10 ^3/uL (0-1.3); Monocytes % (auto) 8.9 % (0.0-12.0); Neutrophils # (auto) 3.7 10 ^3/uL (1.6-8.6); Neutrophils % (auto) 60.9 % (37.0-80.0); Red Blood Cells 3.46 10^6/uL (4.5-5.90); Red Cell Distribution Width 14.2 % (11.8-14.3)
[2020-12-16] MEDS ORDERED: FUROSEMIDE 20 MG/2 ML VIAL IV ONE (09:15)
[2020-12-16 09:27] LABS: BUN/Creatinine Ratio 7.9; Calcium 8.7 mg/dL (8.5-10.1); Potassium 3.8 mmol/L (3.5-5.1)
[2020-12-16 09:30] LABS: Bilirubin, Total 1.4 mg/dL (0.2-1.0); Total Protein 8.9 g/dL (6.4-8.2)
[2020-12-16 11:56] VITALS: BP 111/82
== END 2020-12-16 11:57 | disposition home or self-care (01) ==
LOC: ER 07:38
DX: K76.9 Liver disease, unspecified (principal); I50.9 Heart failure, unspecified; Z79.899 Other long term (current) drug therapy; F17.210 Nicotine dependence, cigarettes, uncomplicated; Z59.0 Homelessness; R22.43 Localized swelling, mass and lump, lower limb, bilateral
CPT/HCPCS: 36415; 71045; 80053; 80320; 83880; 85025; 96374; 96375; 99284; J1940; J3411